=== PATIENT | male | born 1990 | race Caucasian/White ===

== ENCOUNTER → 2020-06-19 | Outpatient (CLI) | payer OTHER ==
[~2020-06-19] MED LIST: FLOMAX0.4 MG PO; NORCO 5-325 TA1 EACH PO; ZOFRAN ODT 4 MG4 MG SL
== END ==
LOC: KOH-I 12:49
DX: R05 Cough (principal); L50.9 Urticaria, unspecified; F17.219 Nicotine dependence, cigarettes, with unspecified nicotine-induced disorders; L29.9 Pruritus, unspecified
CPT/HCPCS: 71046

== ENCOUNTER → 2021-05-12 | Outpatient (CLI) | payer OTHER | LOC: EXRD 08:30 | DX: E66.9 Obesity, unspecified (principal); R07.89 Other chest pain | CPT/HCPCS: 76705 ==